=== PATIENT | male | born 1965 | race Caucasian/White ===

== ENCOUNTER → 2021-06-28 | Outpatient (CLI) | payer BC | LOC: CARD 15:00 | PROVIDERS: ATTEND Internal Medicine Cardiovascular Disease | DX: I35.0 Nonrheumatic aortic (valve) stenosis (principal); I10 Essential (primary) hypertension; I25.10 Atherosclerotic heart disease of native coronary artery without angina pectoris | CPT/HCPCS: 93306 ==

== ENCOUNTER 2021-07-08 09:00 | Day surgery (SDC) | payer BC ==
[2021-07-08] VITALS (11 sets, daily range): BP systolic 108–124; BP diastolic 81–92
[~2021-07-08] VITALS: Ht 177.8 cm; Wt 101.1 kg
[2021-07-08 07:23] LABS: BILIRUBIN,URINE NEGATIVE (NEGATIVE); CLARITY,URINE CLEAR; COLOR,URINE YELLOW; GLUCOSE, URINE (UA) 3+ (NEGATIVE); HEMATOCRIT 48 % (40-54); KETONES,URINE NEGATIVE (NEGATIVE); LEUKOCYTE ESTERASE ,URINE NEGATIVE (NEGATIVE); MEAN CORPUSCULAR HEMOGLOBIN 30 pg (25-34); MEAN CORPUSCULAR HGB CONC 34 g/dL (32-36); MEAN CORPUSCULAR VOLUME 90 fL (80-99); MEAN PLATELET VOLUME 9.5 fL (9.0-12.2); NITRITE,URINE NEGATIVE (NEGATIVE); PH,URINE 6.5 (5-9); PLATELET COUNT 277 10^3/uL (130-400); PROTEIN,URINE NEGATIVE (NEGATIVE); WHITE BLOOD COUNT 6.5 10^3/uL (4.3-11.0)
[2021-07-08 07:35] LABS: BACTERIA,URINE NEGATIVE /HPF; SQUAMOUS EPITHELIAL CELL,UR RARE /HPF
[2021-07-08 07:36] LABS: INR 0.9 (0.8-1.4); PROTHROMBIN TIME PATIENT 12.1 SEC (12.2-14.7)
--- NOTE | 2021-07-08 07:40 | Diagnostic Imaging Report ---
INDICATION: Chest pain, shortness of breath COMPARISON: 04/22/2021 TECHNIQUE: Single radiography of the chest dated 07/08/2021 FINDINGS: The cardiac silhouette is mildly enlarged. No significant pulmonary vascular congestion. The lungs are clear of focal pulmonary opacity. No pleural effusion. No pneumothorax. No acute osseous abnormality. IMPRESSION: Mild cardiomegaly without superimposed congestive heart failure or additional acute cardiopulmonary abnormality. Dictated by: Dictated on workstation # [id number]
[2021-07-08 07:45] LABS: ALBUMIN 4.5 GM/DL (3.2-4.5); BILIRUBIN,TOTAL 0.7 MG/DL (0.1-1.0); CALCIUM 9.4 MG/DL (8.5-10.1); CREATININE SERUM 0.98 MG/DL (0.60-1.30); POTASSIUM 4.2 MMOL/L (3.6-5.0); TOTAL PROTEIN 7.8 GM/DL (6.4-8.2)
[~2021-07-08 09:00] MED LIST: EMPA25TA PO; EZET10TA49 PO; FISH1CAP15 PO; FLUT16SP22 NS; GLIM4TAB5 PO; HEParin (CATH LAB) 2,000 ML IV ONE; HEParin 1000 UNIT/ML (10ML VIAL) FOR BOLUS ONE; LIDOCAINE 1% INJ 50 ML (XYLOCAINE) VIAL ONE; LORA-405 PO; MIDAZOLAM 5 MG/5 ML (VERSED) VIAL ONE; NAPR500T8 PO; NITRO DRIP 25000 MCG/D5W 0 ML IV ONE; NRT10C PO; NS IV 1000 ML 1,000 ML IV SCH; NS IV 1000 ML 1,000 ML ONE; OMEP40CA6 PO; SITA1TAB6 PO; TELM1TAB37 PO; TUME1CAP PO; VERAPAMIL 5 MG/2 ML (CALAN) VIAL IV ONE; fentaNYL INJ 100 MCG/2 ML AMP ONE
[2021-07-08] MEDS ORDERED: HEParin 1000 UNIT/ML (10ML VIAL) FOR BOLUS ONE (09:11)
--- NOTE | 2021-07-08 09:21 | Conscious Sedation/ASA ---
Conscious Sedation Pre-Proced Time 08:30 ASA Score 3 For ASA 3 and 4: Consider anesthesia and medical clearance. Also, for patients with a history of failed moderate sedation consider anesthesia. Airway Lungs Heart ASA score ASA 1: a normal healthy patient ASA 2: a patient with a mild systemic disease (mid diabetes, controlled hypertension, obesity x ASA 3: a patient with a severe systemic disease that limits activity (angina, COPD, prior Myocardial infarction) ASA 4: a patient with an incapacitating disease that is a constant threat to life (CHF, renal failure) ASA 5: a moribund patient not expected to survive 24 hrs. (ruptured aneurysm) ASA 6: a declared brain- patient whose organs are being harvested. For emergent operations, add the letter E after the classification Mallampati Classification Grade 3 Sedation Plan Analgesia, Amnesia, Plan communicated to team members, Discussed options with patient/fam, Discussed risks with patient/fam The patient is an appropriate candidate to undergo the planned procedure, sedation, and anesthesia. The patient immediately re-assessed prior to indication. PARISH PIKE MD Jul 08, 2021 09:21
[2021-07-08] MEDS ORDERED: SITA1TAB6 PO (09:24)
--- NOTE | 2021-07-08 09:24 | Discharge Inst-Post CATH ---
Discharge Inst-CATH/EP Problems Reviewed?: Yes Post Cardiac Cath/EP D/C Inst Follow Up/Plan Hold Metformin for [address] Philippe's office in 2 to 4 weeks <b>CARDIAC CATH/EP PROCEDURE DISCHARGE INSTRUCTIONS</b> ACTIVITY * Go Home directly and rest. * Limit activity of the leg (or wrist if it was used) for 7 days including aerobics, swimming, jogging, bicycling, etc. * Restrict stair-climbing for 7 days if possible, if not, climb up with your non-cath leg, then bring together on the same step. * Avoid lifting, pushing, pulling or excessive movement of the affected extremity for 7 days. * Customary sexual activity may be resumed after 2 days-use caution not to use a position that strains or causes pain to the affected extremity. * No driving for 24 hours. * NO SMOKING. * Avoid straining for bowel movements for 7 days. * Gentle walking on level ground is allowed. * Returning to work will depend on the type of procedure and the results. Your doctor will discuss this with you. CALL YOUR DOCTOR FOR ANY OF THE FOLLOWING: *If bleeding from the puncture site occurs- Apply gentle pressure to site with clean cloth and call your doctor or EMS. * If a knot or lump forms under the skin, increases in size, or causes pain. * If bruising appears to be worsening or moving further down your leg instead of disappearing. * Temperature above 101 F. CARE OF YOUR GROIN INCISION; * Bruising or purple discoloration of the skin near the puncture site is common. * You may shower only, no bathtub bathing for 5 days. Be careful to avoid slipping as your leg may feel stiff. * If a closure device was used on your femoral artery, please see the attached guide regarding care of the device and your leg. * Leave dressing on FOR 24 hours. CARE OF YOUR WRIST INCISION; * Bruising or purple discoloration of the skin near the puncture site is common. * You may shower. * DO NOT submerge wrist. * Leave dressing on FOR 24 hours. PARISH PHILIPPE MD Jul 08, 2021 09:24
[2021-07-08] MEDS ORDERED: PATIENT MAY USE OWN MEDS, ALL PO SCH (09:30)
[2021-07-08] MEDS ORDERED: NS IV 1000 ML 1,000 ML IV SCH (09:30)
--- NOTE | 2021-07-08 09:32 | Cardiac Cath Report ---
Cardiac Cath Report Physician (s)/Investigation Specialist (s) Physician PARISH PIKE MD Pre-Procedure Diagnosis Pre-Procedure Diagnosis: Severe aortic stenosis Post-Procedure Note Procedure Start Date: Jul 08, 2021 Name of Procedure: Left heart catheterization Left ventriculogram Aortic root angiogram Aortic arch angiogram Findings/Procedure Note PROCEDURE NOTE: 55 years old gentleman with severe aortic valve stenosis, scheduled for cardiac catheterization prior to referral for aortic valve replacement. After explaining the procedure to the patient, all pros and cons were explained, all questions were answered. The patient signed the consent and then he was placed on the cardiac catheterization laboratory. Groin was prepped SL fashion local anesthesia was used. Sheath placed in the right femoral artery. Mae left 4.0 continue to prolapse in the aorta due to dilatation of the aortic root, I used Mae left 4.5 catheter and engaged the left system, angiogram was done then using Mae right catheter with exchanged over long Storq wire I approached the aortic valve and I was able to cross the valve. Patient received 3000 units of heparin, pressure was measured, left ventriculogram was done, pullback LV to aorta was done then I engaged the right coronary artery and angiogram was done. Catheter was exchanged to pigtail catheter, patient had dilatation of the aortic root and I had difficulty advancing the catheter and the wire through the arch, I proceeded with performing aortic root angiogram then aortic arch angiogram. At the end of the procedure the sheath was removed. Closure device was deployed FINDINGS: Hemodynamics LV 159/13, end-diastolic pressure of 13 Aorta 97/71 mean of 83 Peak to peak gradient 60 mmHg ANATOMY: Left Main has mild ectasia with no obstructive disease Left Anterior Descending has moderate diffuse ectasia with no significant obstructive disease Left Circumflex has ectasia at the proximal and midportion with severe stenosis at the mid circumflex artery. Right Coronary Artery has diffuse ectasia with slow flow, dominant artery with nonobstructive disease LV Gram was done showing prominent left ventricle with diffuse left ventricular hypokinesia, ejection fraction 40 to 45% Aorta evaluation done with aortic root angiogram showed dilated aortic root and aneurysm in the ascending aorta. The aortic valve is calcified no significant aortic regurgitation. Aortic arch angiogram was done showing prominent aortic arch, tortuous left brachiocephalic artery, left carotid and left subclavian arteries. CONCLUSION: 1. Severe aortic valve stenosis with a peak to peak gradient 60 mmHg, known to have a valve area of 0.5 cm 2. Ascending thoracic aortic aneurysm 3. Diffuse coronary ectasia with severe stenosis at the mid circumflex artery 4. Prominent aortic arch with slightly tortuous brachiocephalic artery, normal left carotid and left subclavian arteries. DISCUSSION AND RECOMMENDATION: Arrangement for referral for aortic valve replacement and possible aortic root replacement and bypass surgery to the circumflex Anesthesia Type: Conscious Sedation Estimated blood loss (mL): 25 ml Contrast Amount: 73 ml Total Radiation Dose: 694 mGy Post-Procedure Diagnosis Post-operative diagnosis: Aortic valve stenosis Thoracic aortic aneurysm Coronary artery disease Hypertension Hyperlipidemia PARISH PIKE MD Jul 08, 2021 09:32
== END 2021-07-08 14:15 | disposition home or self-care (01) ==
LOC: CATH 09:00 → SDC 09:42 → CATH 14:15
PROVIDERS: ATTEND Internal Medicine Cardiovascular Disease
DX: I35.0 Nonrheumatic aortic (valve) stenosis (principal); I71.2 Thoracic aortic aneurysm, without rupture; I25.10 Atherosclerotic heart disease of native coronary artery without angina pectoris; I10 Essential (primary) hypertension; E78.5 Hyperlipidemia, unspecified; E11.9 Type 2 diabetes mellitus without complications; R09.89 Other specified symptoms and signs involving the circulatory and respiratory systems; Z87.891 Personal history of nicotine dependence; Z79.899 Other long term (current) drug therapy; Z79.84 Long term (current) use of oral hypoglycemic drugs; R07.9 Chest pain, unspecified; R06.09 Other forms of dyspnea
CPT/HCPCS: 36221; 71045; 80053; 80061; 81000; 85027; 85610; 85730; 87081; 93005; 93458; 93567; C1760; C1769; C1894; 36415

== ENCOUNTER 2021-09-02 08:00 | Outpatient (RCR) | payer BC ==
[~2021-09-02 08:00] MED LIST changes: -HEParin (CATH LAB) 2,000 ML IV ONE; -HEParin 1000 UNIT/ML (10ML VIAL) FOR BOLUS ONE; -LIDOCAINE 1% INJ 50 ML (XYLOCAINE) VIAL ONE; -MIDAZOLAM 5 MG/5 ML (VERSED) VIAL ONE; -NITRO DRIP 25000 MCG/D5W 0 ML IV ONE; -NS IV 1000 ML 1,000 ML IV SCH; -NS IV 1000 ML 1,000 ML ONE; -VERAPAMIL 5 MG/2 ML (CALAN) VIAL IV ONE; -fentaNYL INJ 100 MCG/2 ML AMP ONE
== END 2021-09-06 | disposition home or self-care (01) ==
LOC: CR 08:00
PROVIDERS: ATTEND Internal Medicine Cardiovascular Disease
DX: Z29.8 Encounter for other specified prophylactic measures (principal); Z95.1 Presence of aortocoronary bypass graft
CPT/HCPCS: 93798

== ENCOUNTER 2021-09-30 11:39 | Outpatient (RCR) | payer BC | END 2021-10-06 | disposition home or self-care (01) | LOC: CR 11:39 | PROVIDERS: ATTEND Internal Medicine Cardiovascular Disease | DX: Z29.8 Encounter for other specified prophylactic measures (principal); Z95.1 Presence of aortocoronary bypass graft | CPT/HCPCS: 93798 ==

== ENCOUNTER 2021-10-19 10:41 | Outpatient (RCR) | payer BC ==
[2021-10-26] MEDS ORDERED: WARF7.5T3 PO (11:56)
[2021-10-26] MEDS ORDERED: ACHD5005 PO (12:44)
== END 2021-11-06 | disposition home or self-care (01) ==
LOC: CR 10:41
PROVIDERS: ATTEND Internal Medicine Cardiovascular Disease
DX: Z29.8 Encounter for other specified prophylactic measures (principal); Z95.1 Presence of aortocoronary bypass graft
CPT/HCPCS: 93798

== ENCOUNTER 2021-10-26 11:34 | Emergency (ER) | payer BC ==
[~2021-10-26] VITALS: Ht 178 cm; Wt 101.1 kg
--- NOTE | 2021-10-26 11:52 | ED Fall/Injury ---
General Chief Complaint: Trauma-Non Activation Stated Complaint: R SIDED RIP PAIN, FELL Nursing Triage Note: PT STATES HE FELL WALKING INTO A POOL LANDING ON HIS RT SIDE/POSTERIOR RIBS. PT HAD A CABG AND VALVE REPLACEMENT July. Source: patient Exam Limitations: no limitations History of Present Illness Date Seen by Provider: Oct 26, 2021 Time Seen by Provider: 11:49 Initial Comments Patient is a 55-year-old male who presents the ED with right-sided posterior lower rib tenderness and pain. Patient states on Sunday he was going down into the pool when he slipped landing on the concrete on his right posterior ribs. Denies hitting his head loss of consciousness. Patient is currently on warfarin. INR checked 4 days ago was 2.4. Denies of any excessive bleeding. Patient has been taken Tylenol without much improvement of his pain. Denies any swelling or bruising. Pain with movement or deep inspiration. Denies of any cervical neck pain, thoracic or lumbar midline tenderness. No bowel or urine cons, saddle paresthesia, chest pain, shortness of breath, cough, headache, dizziness. Allergies and Home Medications Allergies Coded Allergies: [id number]-[id number] Reductase Inhibitor (Verified Allergy, Unknown, 07/08/21) Patient Home Medication List Home Medication List Reviewed: Yes Empagliflozin (Jardiance) 25 Mg Tablet, 25 MG PO DAILY, (Reported) Entered as Reported by: BERNARD ADEN on 07/08/21737 Ezetimibe (Ezetimibe) 10 Mg Tablet, 10 MG PO DAILY, (Reported) Entered as Reported by: BERNARD ADEN on 07/08/21737 Fish Oil/Dha/Epa (Fish Oil 1,200 mg Fish Oil) 1 Each Capsule, 1 EACH PO DAILY, (Reported) Entered as Reported by: BERNARD ADEN on 07/08/21737 Fluticasone Propionate (Fluticasone Propionate) 16 Gm [place].susp, 16 GM NS DAILY, (Reported) Entered as Reported by: BERNARD ADEN on 07/08/21737 Glimepiride (Glimepiride) 4 Mg Tablet, 4 MG PO BID, (Reported) Entered as Reported by: BERNARD ADEN on 07/08/21737 Hydrocodone/Acetaminophen (Hydrocodone-Acetamin 5-325 mg) 5 Mg-325 Mg Tablet, 1 TAB PO Q4H PRN for PAIN-MODERATE (5-7) Prescribed by: JAIDEN TOLLIVER on 10/26/21 1244 Lorazepam (Ativan) 1 Mg Tablet, 1 MG PO BID PRN for ANXIETY, (Reported) Entered as Reported by: BERNARD ADEN on 07/08/21 07 Naproxen (Naproxen) 500 Mg Tablet.dr, 500 MG PO BID, (Reported) Entered as Reported by: BERNARD ADEN on 07/08/21 0738 Nortriptyline HCl (Nortriptyline HCl) 10 Mg Capsule, 10 MG PO HS, (Reported) Entered as Reported by: BERNARD ADEN on 07/08/21 07 Omeprazole (Omeprazole) 40 Mg Capsule.dr, 40 MG PO DAILY, (Reported) Entered as Reported by: BERNARD ADEN on 07/08/21 0738 Sitagliptin Phos/Metformin HCl (Janumet 50-1,000 mg Tablet) 1 Each Tablet, 1 EACH PO BID Prescribed by: PARISH PIKE on 07/08/21 0924 Telmisartan/Hydrochlorothiazid (Telmisartan-Hctz 80-25 mg Tab) 1 Each Tablet, 1 EACH PO DAILY, (Reported) Entered as Reported by: BERNARD ADEN on 07/08/21 07 Tumeric/Ging/[place]/Oreg/Capryl (Candicidal Capsule) 1 Each Capsule, 1 EACH PO DAILY, (Reported) Entered as Reported by: BERNARD ADEN on 07/08/21 07 Warfarin Sodium (Warfarin Sodium) 7.5 Mg Tablet, 7.5 MG PO PRN, (Reported) Entered as Reported by: EDNA WINSLOW on 10/26/21 1156 Last Action: New Order Review of Systems Review of Systems Constitutional: No chills, No diaphoresis, No malaise Eyes: Denies Blindness, Denies Blurred Vision, Denies Drainage, Denies De creased Acuity Ears, Nose, Mouth, Throat: denies ear pain, denies ear discharge Respiratory: No cough, No dyspnea on exertion; other (Right-sided posterior rib tenderness) Cardiovascular: No chest pain, No Hx of Intervention, No palpitations Genitourinary: No decreased output, No discharge Musculoskeletal: back pain; No joint pain; muscle pain All Other Systems Reviewed Negative Unless Noted: Yes Physical Exam Vital Signs Vital Signs - First Documented 10/26/21 11:42 Temp 36.0 Pulse 61 Resp 18 B/P (MAP) 150/99 (116) Pulse Ox 98 O2 Delivery Room Air Capillary Refill : Less Than 3 Seconds Height, Weight, BMI Height: '" Weight: lbs. oz. kg; 31.00 BMI Method: General Appearance: WD/WN, no apparent distress HEENT: PERRL/EOMI, normal ENT inspection, TMs normal, pharynx normal Neck: non-tender, full range of motion, supple, normal inspection Cardiovascular: regular rate, rhythm, no edema, no gallop, no JVD, no murmur Respiratory: chest non-tender, lungs clear, normal breath sounds, no respiratory distress Gastrointestinal: normal bowel sounds, non tender, soft, no organomegaly Extremities: normal range of motion, non-tender, normal inspection, no pedal edema, no calf tenderness Neurologic/Psychiatric: assisted living director II-XII nml as tested, no motor/sensory deficits, alert Skin: normal color, warm/dry Clayton Coma Score Best Eye Response: (4) Open Spontaneously Best Verbal Response: (5) Oriented Best Motor Response: (6) Obeys Commands Clayton Total: 15 Progress/Results/Core Measures Results/Orders My Orders Orders - ZARINA VELASCO Ct Chest Wo (10/26/21 11:48) Hydrocodone/Apap 5/325 Tablet (Lortab 5 (10/26/21 12:15) Medications Given in ED Current Medications Medications Dose Ordered Sig/Salena Route Start Time Stop Time Status Last Admin Dose Admin Acetaminophen/ Hydrocodone Bitart 1 ea ONCE ONCE PO 10/26/21 12:15 10/26/21 12:16 DC 10/26/21 12:22 1 EA Vital Signs/I&O 10/26/21 11:42 Temp 36.0 Pulse 61 Resp 18 B/P (MAP) 150/99 (116) Pulse Ox 98 O2 Delivery Room Air Blood Pressure Mean: 116 Departure Communication (PCP) Patient with a right 11th rib posterior rib fracture. No pneumothorax, pleural effusion. Patient Was given dose of pain medication. Patient has no cervical, thoracic or lumbar midline tenderness. Extensive cardiac history. Schedule follow-up with Dr. Mercer tomorrow. Patient does have spirometer at home which I recommend continue to prevent pneumonia. Discharged with pain medication. Recommend ice to help with inflammation. Patient denies any head injury, neck pain. Return precaution were discussed with patient. Impression Primary Impression: Rib fracture Disposition: HOME, SELF-CARE Condition: Stable Departure-Patient Inst. Decision time for Depature: 12:43 Referrals: NO,LOCAL PHYSICIAN (PCP) Primary Care Physician TAVO MERCER MD Patient Instructions: Rib Fractures in Adults Scripts Hydrocodone/Acetaminophen (Hydrocodone-Acetamin 5-325 mg) 5 Mg-325 Mg Tablet 1 TAB PO Q4H PRN for PAIN-MODERATE (5-7), #8 TAB Prov: ZARINA VELASCO 10/26/21 Work/School Note: Work Release Form Date Seen in the Emergency Department: Oct 26, 2021 Return to Work: Nov 02, 2021 ZARINA VELASCO Oct 26, 2021 11:52
[2021-10-26] MEDS ORDERED: WARF7.5T3 PO (11:56)
[2021-10-26] MEDS ORDERED: HYDROcodone/APAP 5 MG/325 MG (LORTAB) TAB PO ONE (12:15)
--- NOTE | 2021-10-26 12:31 | Diagnostic Imaging Report ---
EXAMINATION: CT chest without contrast. TECHNIQUE: Multiple contiguous axial images were obtained through the chest without the use of intravenous contrast. All CT scans use one or more of the following dose optimizing techniques: automated exposure control, MA and/or KvP adjustment based on patient size and exam type or iterative reconstruction. HISTORY: Right-sided rib pain. Fall 3 days ago. COMPARISON: 07/28/2021. FINDINGS: The heart size is prominent with post-CABG changes and aortic valve replacement. No pericardial effusion is present. There is no mediastinal, hilar, or axillary lymphadenopathy. The lungs demonstrate no pulmonary nodules or masses. There are no focal areas of consolidation. A small amount of subsegmental atelectasis is seen in the dependent lungs. No central endobronchial obstructing lesions are identified. There is no pleural effusion or pneumothorax. A nondisplaced fracture is seen involving the posterior aspect of the right 11th rib. No fracture is seen in the thoracic spine. Limited views of the upper abdominal structures demonstrate no acute abnormalities. Both adrenal glands are unremarkable. IMPRESSION: Nondisplaced fracture involving the posterior aspect of the right 11th rib. No associated pneumothorax or pleural effusion. A small amount of dependent atelectasis is seen in the lung bases. Dictated by: Dictated on workstation # [id number]
[2021-10-26] MEDS ORDERED: ACHD5005 PO (12:44)
[2021-10-26 12:53] VITALS: BP 150/99
== END 2021-10-26 12:53 | disposition home or self-care (01) ==
LOC: EDUNIT# 11:34 → ER 11:36
DX: S22.31XA Fracture of one rib, right side, initial encounter for closed fracture (principal); Z79.01 Long term (current) use of anticoagulants; W01.198A Fall on same level from slipping, tripping and stumbling with subsequent striking against other object, initial encounter; W16.022A Fall into swimming pool striking bottom causing other injury, initial encounter; Y92.34 Swimming pool (public) as the place of occurrence of the external cause
CPT/HCPCS: 71250

== ENCOUNTER → 2022-01-12 | Outpatient (CLI) | payer BC ==
[~2022-01-12] MED LIST changes: +ACHD5005 PO; +RT-ALBUTEROL SULF 2.5 MG/3 ML PRE-MIX VIAL INH ONE; +WARF7.5T3 PO
== END ==
LOC: RT 15:45
PROVIDERS: ATTEND Internal Medicine Critical Care Medicine
DX: J98.11 Atelectasis (principal)
CPT/HCPCS: 94060; 94621; 94726; 94729

== ENCOUNTER → 2023-02-21 | Outpatient (CLI) | payer BC ==
[~2023-02-21] MED LIST changes: -RT-ALBUTEROL SULF 2.5 MG/3 ML PRE-MIX VIAL INH ONE
[2023-02-21 16:45] VITALS: BP 106/67
--- NOTE | 2023-02-21 16:45 | Cardiology Stress Test Report ---
Stress Test Report Date of Procedure/Referring: Date of Procedure: Feb 21, 2023 PCP No,Local Physician Admitting Physician Admitting Physician: Attending Physician: Parish Philippe MD Baseline Heart Rate: 65 Baseline Blood Pressure: Blood Pressure Systolic: 106 Blood Pressure Diastolic: 67 Baseline EKG: Baseline EKG: NSR Summary/Conclusion: Summary: In summary, the patient started exercising with a baseline heart rate, blood pressure and EKG mentioned above Patient was able to exercise for a total of 9 minutes on Amari protocol, METs 10.5 Maximum heart rate 101 Maximum blood pressure 175/93 Stress EKG, Minimal nondiagnostic changes Recovery EKG , Return to baseline Conclusion: Good exercise tolerance for 9 minutes on standard Amari protocol 10.5 METS achieving only 62% of maximal expected heart rate due to beta-blockers Chronic chronotropic incompetence due to beta-blockers Minimal nondiagnostic EKG changes noted with exercise return to baseline during recovery No arrhythmia detected PARISH PHILIPPE MD Feb 21, 2023 16:45
== END ==
LOC: CARD 14:47
PROVIDERS: ATTEND Internal Medicine Cardiovascular Disease
DX: I10 Essential (primary) hypertension (principal); I25.10 Atherosclerotic heart disease of native coronary artery without angina pectoris
CPT/HCPCS: 93017

== ENCOUNTER → 2023-03-06 | Outpatient (CLI) | payer BC | LOC: CARD 15:00 | PROVIDERS: ATTEND Internal Medicine Cardiovascular Disease | DX: I11.9 Hypertensive heart disease without heart failure (principal); I25.10 Atherosclerotic heart disease of native coronary artery without angina pectoris | CPT/HCPCS: 93306 ==